=== PATIENT | female | born 1990 | race Two or more races ===

== ENCOUNTER 2024-08-31 06:36 | Emergency (ER) | payer BC ==
[~2024-08-31] VITALS: Ht 162.6 cm; Wt 70.3 kg
[2024-08-31] MEDS ORDERED: 0.9 % SODIUM CHLORIDE 1,000 ML IV STA (08:22)
[2024-08-31] MEDS ORDERED: KETOROLAC TROMETHAMINE 30 MG VIAL IV ONE (08:30)
[2024-08-31] MEDS ORDERED: KETOROLAC TROMETHAMINE 30 MG VIAL ONE ×2 (08:34→09:57)
[2024-08-31 09:04] LABS: BASO % 0.2 % (0.1-1.2); EOS # 0.00 (0.04-0.54); EOS % 0.0 % (0.7-7.0); LYMPH # 0.34 (1.18-3.74); LYMPH % 3.3 % (19.3-53.1); MEAN PLATELET VOLUME 10.80 fl (9.4-12.4); MONO # 0.32 (0.24-0.82); MONO % 3.1 % (4.7-12.5); NEUT # 9.47 (1.56-6.13); NEUT % 93.1 % (34.0-71.1); RED CELL DISTRIBUTION WIDTH 13.5 % (11.6-14.4)
[2024-08-31 09:28] LABS: BUN CREA RATIO 15.0 (7.0-25.0); CREATININE SERUM 0.8 mg/dL (0.55-1.02); GFR 83.12; GLUCOSE FASTING 132.0 mg/dL (65-100); OSMOLALITY SERUM 287.0 MOSM/KG (275-295)
[2024-08-31] MEDS ORDERED: KETOROLAC TROMETHAMINE 30 MG VIAL IM ONE (09:45)
[2024-08-31 11:03] LABS: URINE APPEARANCE Clear; URINE BILIRRUBIN Negative (NEGATIVE); URINE BLOOD Negative; URINE COLOR Yellow; URINE GLUCOSE Negative (NEGATIVE); URINE LEUKOCYTE Negative; URINE NITRATE Negative; URINE PROTEIN 30 (NEGATIVE); URINE UROBILINOGEN 1.0 E.U./dl
[2024-08-31 11:04] LABS: URINE BACTERIA 2048.2 uL (0.0-1933); URINE EPITHELIAL CELLS 40.9 uL (0.0-38.8); URINE RBC 10.1 uL (0.0-20.8); URINE WBC 30.2 uL (0.0-23.2)
[2024-08-31 11:16] LABS: URINE CAST 0.29 uL (0.0-1.40); URINE KETONE 80 (NEGATIVE)
== END 2024-08-31 11:23 | disposition home or self-care (01) ==
LOC: ER 06:36
PROVIDERS: Emergency Medicine
DX: R10.32 Left lower quadrant pain (principal); N83.202 Unspecified ovarian cyst, left side